=== PATIENT | male | born 1965 | race Two or more races ===

== ENCOUNTER 2017-06-09 11:11 | Emergency (ER) | payer SELFPAY ==
[2017-06-09 11:18] VITALS: BP 123/74
[2017-06-09] MEDS ORDERED: IBUPROFEN 800 MG TABLET PO ONE (11:48)
[2017-06-09] MEDS ORDERED: BENZONATATE 100 MG CAPSULE PO ONE (11:48)
--- NOTE | 2017-06-09 11:53 | ER Document Report ---
HPI - HPI Pain Level: 3 Context: Patient is a 52-year-old male who presents with his with a chief complaint of flulike symptoms. states that she was diagnosed with influenza last Monday was started on medication that she does not know the name of. She states that her started feeling ill on Monday with body aches, cough. Has had an intermittent fever on and off throughout the week. Patient denies any tobacco use, alcohol or drug use. States he has been taking Tylenol at home for pain but otherwise denies any other [id number]-[id number] medications. Past medical history significant for hypertension. - CONSTITUTIONAL Constitutional: REPORTS: Fever, Chills - EENT EENT: REPORTS: Sore Throat. DENIES: Ear Pain, Eye problems - NEURO Neurology: REPORTS: Headache, Weakness. DENIES: Vision blurred, Dizzinesss / Vertigo - CARDIOVASCULAR Cardiovascular: DENIES: Chest pain - RESPIRATORY Respiratory: REPORTS: Coughing. DENIES: Trouble Breathing - GASTROINTESTINAL Gastrointestinal: REPORTS: Abdominal Pain. DENIES: Black / Bloody Stools - URINARY Urinary: DENIES: Dysuria, Urgency, Frequency - REPRODUCTIVE Reproductive: DENIES: : - MUSCULOSKELETAL Musculoskeletal: REPORTS: Extremity pain Past Medical History - Social History Smoking Status: Never Smoker Chew tobacco use (# tins/day): No Frequency of alcohol use: None Drug Abuse: None Family History: Reviewed & Not Pertinent Patient has suicidal ideation: No Patient has homicidal ideation: No - Past Medical History Cardiac Medical History: Reports: Hx Hypertension Renal/ Medical History: Denies: Hx Peritoneal Dialysis GI Medical History: Reports: Hx Gastroesophageal Reflux Disease Vertical Provider Document - CONSTITUTIONAL Agree With Documented VS: Yes Notes: PHYSICAL EXAM GENERAL: Alert, interacts well. HEENT: NCAT, pale conjunctiva, extraocular movements intact, pupils PERRL. external ear normal, no evidence of external auditory canal tenderness, blood/ drainage, cerumen impaction, TM intact without evidence of effusion, bulging, injection, MMM, Uvula midline. Airway patent. No evidence of tonsillar enlargement, peritonsillar abscess, retropharyngeal abscess. NECK: Full range of motion. Supple. Trachea midline. LUNGS: Clear to auscultation bilaterally, no wheezes, rales, or rhonchi. No respiratory distress. HEART: Regular rate and rhythm. No murmurs, gallops, or rubs. ABDOMEN: Soft, nondistended, nontender. No guarding, rebound, or rigidity.. Bowel sounds present in all 4 quadrants. EXTREMITIES: Moves all 4 extremities spontaneously. No edema, radial and dorsalis pedis pulses 2/4 bilaterally. No cyanosis. NEUROLOGICAL: Alert and oriented x4. Normal speech. PSYCH: Normal affect, normal mood. SKIN: Warm, dry, normal turgor. No rashes or lesions noted. - INFECTION CONTROL TRAVEL OUTSIDE OF THE [place] IN LAST 30 DAYS: No Course - Re-evaluation Re-evalutation: 06/09/17 11:49 Patient presents with cough, reflux, nausea and fever at home consistent with a diagnosis of influenza given recent sick contacts at home. Patient is overall well in appearance, in no acute distress. Lung sounds clear. Able to tolerate oral intake without difficulty here in the emergency department. Patient is outside of the window for Tamiflu. At this time will discharge with return precautions and follow-up recommendations. Verbal discharge instructions given a the bedside and opportunity for questions given. Medication warnings reviewed. Patient is in agreement with this plan and has verbalized understanding of return precautions and the need for primary care follow-up in the next 24-72 hours. - Vital Signs Vital signs: Temp Pulse Resp BP Pulse Ox 99.1 F 79 16 123/74 97 06/09/17 11:17 06/09/17 11:17 06/09/17 11:17 06/09/17 11:17 06/09/17 11:17 Discharge - Discharge Clinical Impression: Flu-like symptoms Condition: Good Disposition: HOME, SELF-CARE Additional Instructions: You have influenza. There is no treatment that is effective for this diagnosis other than supportive care at home. This includes drinking plenty of fluids, using Tylenol or ibuprofen as needed for fever and discomfort, and Zofran as needed for nausea and vomiting. Please follow closely with you primary care physician the next 1-2 days regarding this diagnosis. Return to the emergency department immediately if you began to have persistent vomiting prevents you from being able to keep fluids down for more than 12 hours, you pass out, you began having difficulty breathing, you become confused, or you have any other symptoms that are worrisome to you. You can take pepcid for heartburn, this is available over the counter Prescriptions: Benzonatate [Tessalon Perles 100 mg Capsule] 100 mg PO ASDIR PRN #40 capsule PRN Reason: Ondansetron [Zofran Odt 4 mg Tablet] 1 - 2 tab PO Q4H PRN #15 tab.rapdis PRN Reason: For Nausea/Vomiting Referrals: NEHEMIAH BHATIA MD [ACTIVE STAFF] - Follow up in 1 week
== END 2017-06-09 12:02 | disposition home or self-care (01) ==
LOC: ER 11:11
DX: M79.1 Myalgia (principal); R05 Cough; R11.0 Nausea; I10 Essential (primary) hypertension
CPT/HCPCS: 99283

== ENCOUNTER → 2017-06-23 | Outpatient (CLI) | payer OTHER ==
--- NOTE | 2017-06-23 14:42 | RADIOLOGY REPORT (SQ) ---
EXAM DESCRIPTION: BARIUM SWALLOW ESOPHAGUS COMPLETED DATE/TIME: 06/23/2017 9:10 am REASON FOR STUDY: SOLID FOOD DYSPHAGIA/WT LOSS/VOMITING R13.10 DYSPHAGIA, UNSPECIFIED R63.4 ABNORM AL WEIGHT LOSS R11.10 VOMITING, UNSPECIFIED COMPARISON: None. TECHNIQUE: Under fluoroscopic guidance, patient ingested effervescent granules followed by thick and thin barium. Fluoroscopic spot images and routine radiographic images acquired and stored on PACS. 12 MM BARIUM TABLET GIVEN: Yes. No significant delay in passage. LIMITATIONS: None. FLUOROSCOPY TIME: FLUORO TIME: 20 SECONDS 11 fluoroscopy images saved to PACS. FINDINGS: NEUROMUSCULAR COORDINATION OF SWALLOW: Normal. No aspiration. ESOPHAGEAL MOTILITY: Normal peristalsis. No esophageal spasm. ESOPHAGEAL MUCOSA: Normal mucosa without masses or ulceration. GASTRO-ESOPHAGEAL JUNCTION: Small sliding hiatal hernia. Unprovoked gastroesophageal reflux extendin g into the upper 1/3 of the esophagus. NON-GI TRACT STRUCTURES: No significant finding. OTHER: No other significant finding. IMPRESSION: 1. SMALL SLIDING HIATAL HERNIA. 2. SEVERE GASTROESOPHAGEAL REFLUX. COMMENT: Quality ID [id number]: Final reports for procedures using fluoroscopy that document radiation exp osure indices, or exposure time and number of fluorographic images (if radiation exposure indices are not available) TECHNICAL DOCUMENTATION: JOB ID: [id number] [employer]- All Rights Reserved Reading location - IP/workstation name: [email or web address]
== END ==
LOC: RAD 08:08
DX: K44.9 Diaphragmatic hernia without obstruction or gangrene (principal); K21.9 Gastro-esophageal reflux disease without esophagitis; R13.10 Dysphagia, unspecified; R63.4 Abnormal weight loss; R11.10 Vomiting, unspecified
CPT/HCPCS: 74220

== ENCOUNTER → 2017-07-01 | Outpatient (CLI) | payer OTHER ==
[2017-07-01 09:06] LABS: ABSOLUTE EOSINOPHILS # (AUTO) 0.1 10^3/uL (0.0-0.6); ABSOLUTE LYMPHOCYTES (AUTO) 1.5 10^3/uL (0.5-4.7); ABSOLUTE MONOCYTES (AUTO) 0.8 10^3/uL (0.1-1.4); ABSOLUTE NEUT (AUTO) 7.5 10^3/uL (1.7-8.2); BASOPHILS % (AUTO) 0.3 % (0-2); EOSINOPHILS % (AUTO) 0.6 % (0-6); HEMATOCRIT 42.9 % (37.9-51.0); HEMOGLOBIN 14.3 g/dL (13.5-17.0); LYMPHOCYTES % (AUTO) 14.9 % (13-45); MEAN CORPUSCULAR HEMOGLOBIN 27.9 pg (27.0-33.4); MEAN CORPUSCULAR HGB CONC 33.3 g/dL (32.0-36.0); MEAN CORPUSCULAR VOLUME 84 fl (80-97); PLATELET COUNT 290 10^3/uL (150-450); RED BLOOD COUNT 5.13 10^6/uL (4.35-5.55); RED CELL DISTRIBUTION WIDTH 12.6 % (11.5-14.0); SEGMENTED NEUTROPHILS % (AUTO) 76.2 % (42-78); TOTAL CELLS COUNTED % (AUTO) 100 %; WHITE BLOOD COUNT 9.9 10^3/uL (4.0-10.5)
[2017-07-01 09:36] LABS: ALANINE AMINOTRANSFERASE 23 U/L (21-72); ALBUMIN 4.7 g/dL (3.5-5.0); ALKALINE PHOSPHATASE 47 U/L (38-126); ANION GAP 11 (5-19); ASPARTATE AMINO TRANSFERASE 21 U/L (17-59); BILIRUBIN,DIRECT 0.3 mg/dL (0.0-0.4); BILIRUBIN,TOTAL 0.5 mg/dL (0.2-1.3); BLOOD UREA NITROGEN 19 mg/dL (7-20); CALCIUM 10.5 mg/dL (8.4-10.2); CARBON DIOXIDE 32 mmol/L (22-30); CHLORIDE 101 mmol/L (98-107); CHOLESTEROL 195.02 mg/dL (0-200); GLUCOSE 103 mg/dL (75-110); POTASSIUM 5.8 mmol/L (3.6-5.0); SODIUM 144.1 mmol/L (137-145); TOTAL PROTEIN 8.8 g/dL (6.3-8.2); TRIGLYCERIDES 279 mg/dL (<150)
[2017-07-01 09:47] LABS: DIRECT LDL 100 mg/dL (<100)
[2017-07-01 10:08] LABS: VLDL CHOLESTEROL 55.8 mg/dL (10-31)
== END ==
LOC: CCC 08:12
DX: R13.10 Dysphagia, unspecified (principal); R63.4 Abnormal weight loss; R11.10 Vomiting, unspecified
CPT/HCPCS: 36415; 80053; 80061; 83036; 84153; 84443; 85025

== ENCOUNTER → 2017-08-01 | Outpatient (CLI) | payer OTHER ==
[2017-08-01 11:24] LABS: CALCIUM 10.2 mg/dL (8.4-10.2); POTASSIUM 5.6 mmol/L (3.6-5.0)
== END ==
LOC: CCC 10:08
DX: E83.52 Hypercalcemia (principal); E87.5 Hyperkalemia
CPT/HCPCS: 36415; 82310; 84132

== ENCOUNTER 2017-11-09 07:32 | Emergency (ER) | payer OTHER ==
[2017-11-09 07:46] VITALS: BP 141/81
[2017-11-09] MEDS ORDERED: OXYCODONE-ACETAMINOPHEN 5-325 MG TABLET PO ONE (08:00)
--- NOTE | 2017-11-09 08:05 | ER Document Report ---
ED Neck/Back Problem - General Chief Complaint: Back Pain Stated Complaint: BACK PAIN Time Seen by Provider: 11/09/17 07:54 TRAVEL OUTSIDE OF THE [place] IN LAST 30 DAYS: No - HPI Notes: Patient is a 52-year-old male that presents to the emergency department for chief complaint of back pain. Patient has had low back pain previously but states it is more severe today. He has had exacerbation of his chronic low back pain for the last 3 days. He states he was lifting and twisting while at work which is what aggravated it. He has been taking ibuprofen at home with some relief. He denies any fevers, chills, saddle anesthesia, bowel or bladder incontinence and lower extremity weakness. He denies any direct fall or trauma to the area. He denies IV drug use. Past Medical History: Negative Past Surgical History: Negative Social History: Denies drugs alcohol and tobacco Family History: Reviewed and noncontributory for presenting illness Allergies: Reviewed, see documented allergy list. REVIEW OF SYSTEMS: CONSTITUTIONAL : No fever No chills No diaphoresis No recent illness EENT: No vision changes No congestion No sore throat CARDIOVASCULAR: No chest pain No palpitations RESPIRATORY: No shortness of breath No cough No difficulty breathing GASTROINTESTINAL: No abdominal pain No nausea No vomiting No diarrhea GENITOURINARY: No dysuria No hematuria No difficulty urinating MUSCULOSKELETAL: back pain No leg pain No arm pain SKIN: No rashes No lesions LYMPHATIC: No swollen, enlarged glands. NEUROLOGICAL: No lightheadedness No headache No weakness No paresthesias PSYCHIATRIC: No anxiety No depression PHYSICAL EXAMINATION: Vital signs reviewed, nursing noted reviewed. GENERAL: Well-appearing, well-nourished and in no acute distress. HEAD: Atraumatic, normocephalic. EYES: Eyes appear normal, extraocular movements intact, sclera anicteric, conjunctiva are normal. ENT: nares patent, oropharynx clear without exudates. Moist mucous membranes. NECK: Normal range of motion, supple without lymphadenopathy BACK: Midline lumbar tenderness L4-L5 with no step-off. Mild bilateral paraspinal lumbar tenderness and spasm. Normal thoracic spine LUNGS: Breath sounds clear to auscultation bilaterally and equal. No wheezes rales or rhonchi. HEART: Regular rate and rhythm without murmurs ABDOMEN: Soft, nontender, normoactive bowel sounds. No rebound, guarding, or rigidity. No masses appreciated. EXTREMITIES: Nontender, good range of motion, no pitting or edema. NEUROLOGICAL: No focal neurological deficits. Moves all extremities spontaneously Motor and sensory grossly intact on exam. PSYCH: Normal mood, normal affect. SKIN: Warm, Dry, normal turgor, no rashes or lesions noted on exposed skin - Related Data Allergies/Adverse Reactions: No Known Allergies Allergy (Unverified 06/09/17 11:13) Past Medical History - Social History Smoking Status: Never Smoker Family History: Reviewed & Not Pertinent - Past Medical History Cardiac Medical History: Reports: Hx Hypertension Renal/ Medical History: Denies: Hx Peritoneal Dialysis GI Medical History: Reports: Hx Gastroesophageal Reflux Disease Review of Systems - Review of Systems Notes: Dictated Physical Exam - Vital signs Vitals: Temp Pulse Resp BP Pulse Ox 97.5 F 61 16 141/81 H 98 11/09/17 07:39 11/09/17 07:39 11/09/17 07:39 11/09/17 07:39 11/09/17 07:39 - Notes Notes: Dictated Course - Re-evaluation Re-evalutation: 11/09/17 08:03 Vitals reviewed. Nursing notes reviewed. Patient given Percocet for pain. X- ray of the lumbar spine obtained. He is not having any symptoms consistent with cauda equina, epidural abscess or transverse myelitis or discitis. He is able to ambulate and has full range of motion of the lumbar spine. He is nontoxic-appearing. Patient will be discharged home with referral to primary care for follow-up and possible physical therapy referral if symptoms continue. 11/09/17 08:41 Lumbar Spine X-Ray 11/09/17 08:00 IMPRESSION: 1. Degenerative disc disease at L5-S1. 2. No acute osseous findings. On reevaluation patient was symptomatically improved. - Vital Signs Vital signs: Temp Pulse Resp BP Pulse Ox 97.5 F 61 16 141/81 H 98 11/09/17 07:39 11/09/17 07:39 11/09/17 07:39 11/09/17 07:39 11/09/17 07:39 Discharge - Discharge Clinical Impression: Degenerative joint disease of low back Back pain Qualifiers: Back pain location: low back pain Chronicity: acute Back pain laterality: midline Sciatica presence: without sciatica Qualified Code(s): M54.5 - Low back pain Condition: Stable Disposition: HOME, SELF-CARE Instructions: Low Back Pain ([facility]) Additional Instructions: Please return to the emergency department if you have any worsening, or concern of your symptoms. Please return to the emergency department if you develop chest pain, difficulty breathing, severe abdominal pain, or ongoing vomiting. Please follow-up with your primary care physician in 2-3 days and any other recommended physicians. If prescribed, take all medications as directed. If you have any questions or concerns do not hesitate to return the emergency department for evaluation. Return if you have any lower extremity numbness or weakness, incontinence of your urine or stool, fevers, difficulty walking. Prescriptions: Naproxen 500 mg PO BID #30 tablet Referrals: [facility] [NO LOCAL MD] - Follow up in 3-5 days
--- NOTE | 2017-11-09 08:35 | RADIOLOGY REPORT (SQ) ---
EXAM DESCRIPTION: L SPINE WHOLE COMPLETED DATE/TIME: 11/09/2017 8:26 am REASON FOR STUDY: back pain COMPARISON: None. NUMBER OF VIEWS: Five views including obliques. TECHNIQUE: AP, lateral, oblique, and sacral radiographic images acquired of the lumbar spine. LIMITATIONS: None. FINDINGS: MINERALIZATION: Normal. SEGMENTATION: Normal. No transitional anatomy. ALIGNMENT: Normal. VERTEBRAE: Maintained height. No fracture or worrisome bone lesion. DISCS: Moderate severe decrease in disc space at L5-S1. Minimal anterior osteophytes. POSTERIOR ELEMENTS: Pedicles and facets are intact. No pars defect or posterior arch defects. HARDWARE: None in the spine. PARASPINAL SOFT TISSUES: Normal. PELVIS: Intact as visualized. No fractures or worrisome bone lesions. SI joints intact. OTHER: No other significant finding. IMPRESSION: 1. Degenerative disc disease at L5-S1. 2. No acute osseous findings. TECHNICAL DOCUMENTATION: JOB ID: [id number] [email or web address]- All Rights Reserved Reading location - IP/workstation name: [email or web address]
== END 2017-11-09 08:56 | disposition home or self-care (01) ==
LOC: ER 07:32
DX: M47.9 Spondylosis, unspecified (principal); M51.37 Other intervertebral disc degeneration, lumbosacral region; I10 Essential (primary) hypertension
CPT/HCPCS: 72110; 99283

== ENCOUNTER → 2018-09-19 | Outpatient (CLI) | payer OTHER ==
[2018-09-19 08:19] LABS: ABSOLUTE EOSINOPHILS # (AUTO) 0.1 10^3/uL (0.0-0.6); ABSOLUTE LYMPHOCYTES (AUTO) 1.3 10^3/uL (0.5-4.7); ABSOLUTE MONOCYTES (AUTO) 0.5 10^3/uL (0.1-1.4); ABSOLUTE NEUT (AUTO) 4.7 10^3/uL (1.7-8.2); BASOPHILS % (AUTO) 0.5 % (0-2); EOSINOPHILS % (AUTO) 1.1 % (0-6); HEMATOCRIT 44.7 % (37.9-51.0); HEMOGLOBIN 14.9 g/dL (13.5-17.0); LYMPHOCYTES % (AUTO) 19.8 % (13-45); MEAN CORPUSCULAR HGB CONC 33.4 g/dL (32.0-36.0); MEAN CORPUSCULAR VOLUME 84 fl (80-97); MONOCYTES % (AUTO) 7.3 % (3-13); PLATELET COUNT 242 10^3/uL (150-450); RED BLOOD COUNT 5.32 10^6/uL (4.35-5.55); RED CELL DISTRIBUTION WIDTH 12.7 % (11.5-14.0); SEGMENTED NEUTROPHILS % (AUTO) 71.3 % (42-78); TOTAL CELLS COUNTED % (AUTO) 100 %; WHITE BLOOD COUNT 6.6 10^3/uL (4.0-10.5)
[2018-09-19 08:42] LABS: ALBUMIN 4.7 g/dL (3.5-5.0); ALKALINE PHOSPHATASE 50 U/L (38-126); ANION GAP 10 (5-19); ASPARTATE AMINO TRANSFERASE 29 U/L (17-59); BILIRUBIN,DIRECT 0.3 mg/dL (0.0-0.4); BILIRUBIN,TOTAL 0.5 mg/dL (0.2-1.3); BLOOD UREA NITROGEN 21 mg/dL (7-20); CALCIUM 9.5 mg/dL (8.4-10.2); CARBON DIOXIDE 30 mmol/L (22-30); CHLORIDE 100 mmol/L (98-107); CHOLESTEROL 235.63 mg/dL (0-200); GLUCOSE 104 mg/dL (75-110); POTASSIUM 4.2 mmol/L (3.6-5.0); TOTAL PROTEIN 8.5 g/dL (6.3-8.2); TRIGLYCERIDES 241 mg/dL (<150)
[2018-09-19 08:53] LABS: DIRECT LDL 172 mg/dL (<100)
[2018-09-19 09:13] LABS: VLDL CHOLESTEROL 48.2 mg/dL (10-31)
== END ==
LOC: CCC 07:28
DX: I10 Essential (primary) hypertension (principal)
CPT/HCPCS: 36415; 80053; 80061; 83036; 84153; 84443; 85025

== ENCOUNTER → 2019-02-26 | Outpatient (CLI) | payer OTHER ==
--- NOTE | 2019-02-26 11:21 | EKG REPORT ---
SEVERITY:- BORDERLINE ECG - SINUS RHYTHM BORDERLINE T WAVE ABNORMALITIES : Confirmed by: Tamara Hodge MD 26-Feb-2019 11:20:52
== END ==
LOC: CCC 09:21
DX: I10 Essential (primary) hypertension (principal); R07.9 Chest pain, unspecified; R06.02 Shortness of breath
CPT/HCPCS: 93005; 93010

== ENCOUNTER → 2019-03-14 | Outpatient (CLI) | payer OTHER ==
--- NOTE | 2019-03-14 18:32 | DRAGON STRESS TEST REPORT ---
EXERCISE TREADMILL TEST. DATE OF PROCEDURE: March 14, 2019 INDICATION: Patient with unspecified chest pain. Coronary risk factors: Elevated cholesterol and blood pressure. Resting EKG: Sinus rhythm, no baseline ST segment changes. Stress EKG: No significant changes noted with with exercise treadmill. Reason for termination: Dyspnea and fatigue. PROCEDURE REPORT: Baseline heart rate: 78 beats per minute with blood pressure of 153/93. Patient had no significant complaints at baseline. Patient was exercised on a standard Reinaldo protocol. Patient exercised for total of 7 minutes and 0 seconds. Exercise was stopped because of fatigue and shortness of breath. Patient denied any chest arm or neck discomfort during the exercise, at peak exercise or in recovery. If automatic blood pressure recorded and if felt not accurate manual blood pressure then were recorded at appropriate intervals. Peak heart rate: 151 bpm, more than 85% of predicted maximum. Peak blood pressure: 173/96 mmHg. Double product: Adequate and more than 20 kcal kcal Exercise EKG: Showed some baseline artifact during exercise but no significant ST segment changes noted. CONCLUSIONS: Adequate heart rate and blood pressure response. Below average exercise tolerance. Negative EKG changes with exercise. RECOMMENDATIONS: Aggressive risk factor modification, medical therapy. Consider cardiology consultation if clinically indicated. Jen Arciniega M.D., BERTRAM Optimization Engineer supervisor estimator and drafter, Board certified in cardiovascular diseases, Nuclear cardiology, Echocardiography Cardiac CT and cardiac MRI Ph. [phone] Ph. [phone] [facility]
== END ==
LOC: SP 08:02
PROVIDERS: ATTEND Internal Medicine
DX: R07.89 Other chest pain (principal); R06.02 Shortness of breath; E78.00 Pure hypercholesterolemia, unspecified; I10 Essential (primary) hypertension
CPT/HCPCS: 93017

== ENCOUNTER → 2019-04-09 | Outpatient (CLI) | payer OTHER ==
--- NOTE | 2019-04-10 10:17 | RADIOLOGY REPORT (SQ) ---
EXAM DESCRIPTION: CT LUMBAR SPINE WITH COMPLETED DATE/TIME: 04/09/2019 1:03 pm REASON FOR STUDY: M51.36 OTHER INTERVERTEBRAL DISC DEGENERATION, LUMBAR REGION COMPARISON: None. TECHNIQUE: Axial images acquired through the lumbar spine with intravenous contrast. Images reviewe d with lung, soft tissue and bone windows. Reconstructed coronal and sagittal MPR images reviewed. All images stored on PACS. All CT scanners at this facility use dose modulation, iterative reconstruction, and/or weight based d osing when appropriate to reduce radiation dose to as low as reasonably achievable (ALARA). [facility]: Dose Right [facility]: CareDose [facility]: Dose Right [facility]: Teradose 4D [facility]: Glowpoint CONTRAST TYPE AND DOSE: 100 mL Omnipaque 350. RENAL FUNCTION: Creatinine 1.1. LIMITATIONS: None. FINDINGS: SEGMENTATION: Normal. No transitional anatomy. ALIGNMENT: Normal. VERTEBRAL BODIES: No fractures. No dislocation. No acute findings. DISCS: Diffuse posterior disc bulge at L4-L5. Disc space narrowing with sclerosis and vacuum change at L5-S1. Study limited by lack of intrathecal contrast. PEDICLES, TRANSVERSE PROCESSES: No fractures. No dislocation. No acute findings. FACETS, POSTERIOR ELEMENTS: No fractures. No dislocation. No spinal stenosis. HARDWARE: None in the spine. VISUALIZED RIBS: No fractures. SOFT TISSUES: No significant or acute finding in adjacent soft tissues. OTHER: No other significant finding. IMPRESSION: DEGENERATIVE DISC DISEASE IN THE LOWER LUMBAR SPINE. DIFFUSE DISC BULGE AT L4-L5. NO H [facility]-GRADE STENOSIS. TECHNICAL DOCUMENTATION: JOB ID: [id number] [employer]- All Rights Reserved Reading location - IP/workstation name: [email or web address]
== END ==
LOC: RAD 12:17
PROVIDERS: ATTEND Internal Medicine
DX: M51.36 Other intervertebral disc degeneration, lumbar region (principal)
CPT/HCPCS: 72132; 82565